=== PATIENT | female | born 2000 | race Two or more races ===

== ENCOUNTER 2018-07-26 12:23 | Inpatient (IN) | END 2018-07-27 15:02 | disposition home or self-care (01) | DRG 781 ==

== ENCOUNTER 2018-09-27 13:44 | Outpatient (CLI) | END 2018-09-27 16:27 | disposition home or self-care (01) ==

== ENCOUNTER 2018-09-30 15:41 | Outpatient (CLI) | END 2018-09-30 17:04 | disposition home or self-care (01) ==

== ENCOUNTER 2018-10-07 09:45 | Outpatient (CLI) | END 2018-10-07 13:56 | disposition home or self-care (01) ==

== ENCOUNTER 2018-10-10 10:57 | Inpatient (IN) | END 2018-10-15 13:15 | disposition home or self-care (01) | DRG 807 ==

== ENCOUNTER 2019-07-15 14:43 | Outpatient (CLI) | payer OTHER ==
[~2019-07-15] VITALS: Ht 154.9 cm; Wt 74.8 kg
[~2019-07-15 14:43] MED LIST: IBUP-1542 PO; PREN-93 PO
[2019-07-15 15:57] VITALS: BP 109/62; PULSE 93; RESP 17; Ht 154.9 cm; Wt 74.8 kg
--- NOTE | 2019-07-15 19:04 | TRIAGE ---
OB Triage Datetime Report Generated by CPN: 07/15/2019 19:04 Datetime: 07/15/2019 18:16 Labor Evaluation Frequency: NONE Monitor Mode: External Resting Tone [place]: Relaxed Heart Rate FHR Baseline Rate: 150 Monitor Mode: External US FHR Baseline Changes: No Baseline Change Variability: Moderate 6-25 bpm Accelerations: 15X15 Decelerations: None Category: Category I Datetime: 07/15/2019 17:45 Labor Evaluation Frequency: NONE Monitor Mode: External Resting Tone [place]: Relaxed Heart Rate FHR Baseline Rate: 148 Monitor Mode: External US FHR Baseline Changes: No Baseline Change Variability: Moderate 6-25 bpm Accelerations: 15X15 Decelerations: None Category: Category I Datetime: 07/15/2019 16:46 Labor Evaluation Frequency: none Monitor Mode: External Resting Tone [place]: Relaxed Heart Rate FHR Baseline Rate: 150 Monitor Mode: External US FHR Baseline Changes: No Baseline Change Variability: Moderate 6-25 bpm Accelerations: 15X15 Decelerations: None Category: Category I Datetime: 07/15/2019 16:11 Labor Evaluation Frequency: none Monitor Mode: External Resting Tone [place]: Relaxed Heart Rate FHR Baseline Rate: 145 Monitor Mode: External US FHR Baseline Changes: No Baseline Change Variability: Moderate 6-25 bpm Accelerations: 15X15 Decelerations: None Category: Category I Datetime: 07/15/2019 15:56 Stage of : OB Triage Datetime: 07/15/2019 15:53 Stage of : OB Triage Assessment Type: Transfer/Discharge Maternal Assessment Level of Consciousness: Keenly Alert, Responsive DTR's/Clonus: DTRs 2+; No Clonus Headache: Denies Blurred Vision: No Respiratory Effort: Unlabored; Regular Rhythm; Equal Expansion Breath Sounds, Left: Clear and Equal Breath Sounds, Right: Clear and Equal Nausea/Vomiting: Denies RUQ Epigastric Pain: Denies Lower Extremities Edema: None Degree: None Upper Extremities Edema: None Degree: None Facial Edema: None Temperature Route: Axillary Fall Risk Assessment History of Falling: (0) No Secondary Diagnosis: (0) No Ambulatory Aid: (0) Bedrest/Nurse Assist IV Therapy: (0) No Gait: (0) Normal/Bedrest/Immobile Mental Status: (0) Oriented to Own Ability Fall Score: 0 Fall Risk Score Definition: No Risk: No action required Monitor Mode: External Heart Rate FHR Baseline Rate: 135 Variability: Moderate 6-25 bpm Accelerations: 15X15 Decelerations: None Category: Category I Pain Assessment Pain Scale: 1 Pain Presence: None/Denies Pain Type: N/A Datetime: 07/15/2019 15:51 Time of Arrival: 07/15/2019 14:36 EGA: 32.3 Arrived By: Ambulatory Arrived From: Home Chief Complaint: STATED SHE FELL AT 1330 THIS AFTERNOON, LOST HER BALANCE, Movement: Present Contractions: Denies/Absent Rupture of Membranes: Denies Vaginal Bleeding: None Vaginal Discharge: Denies Recent Sexual Intercouse: Denies Abdominal Trauma: Fall
--- NOTE | 2019-07-15 19:06 | PN ---
Triage Information Date/Time Reason for visit: Status post fall, feeling dizzy Weeks of Gestation 19-year-old 2 para 1 at 32 weeks and 3 days of gestation with estimated date of delivery September 06, 2019 Patient reports an episode of falling but did not hit her abdomen Patient reports positive movement, denies vaginal bleeding and leaking fluid, denies uterine contractions /Para 2 para 1 Diabetes: none Hypertention: none Objective Vital Signs Date Temp Pulse Resp B/P (MAP) Pulse Ox O2 O2 Flow FiO2 Time Delivery Rate 07/15/19 98.8 93 17 109/62 Room Air 15:57 (78) Heart Rate: 140's Heart Rate Comments heart rate tracing category 1 Contractions: None Results/Medications Result Diagram: 07/15/19 1622 07/15/19 1808 Results 24 hrs Blood type A positive Kleihauer-Betke negative Laboratory Tests Test 07/15/19 16:22 07/15/19 18:08 White Blood Count 13.2 H Red Blood Count 3.85 L Hemoglobin 9.2 L Hematocrit 30.2 L Mean Corpuscular Volume 78.4 L Mean Corpuscular Hemoglobin 23.9 L Mean Corpuscular Hemoglobin Concent 30.5 L Red Cell Distribution Width 15.9 H Platelet Count 442 H Mean Platelet Volume 10.9 H Immature Granulocytes % 4.400 H Neutrophils % 71.1 Lymphocytes % 17.7 Monocytes % 5.3 Eosinophils % 0.8 Basophils % 0.7 Nucleated Red Blood Cells % 0.0 Immature Granulocytes # 0.580 H Neutrophils # 9.4 H Lymphocytes # 2.3 Monocytes # 0.7 Eosinophils # 0.1 Basophils # 0.1 Nucleated Red Blood Cells # 0.0 Kleihauer-Betke Stain 0.0000 Sodium Level 136 Potassium Level 3.8 Chloride Level 104 Carbon Dioxide Level 23 Anion Gap 9 Blood Urea Nitrogen 6 L Creatinine 0.40 L Est Glomerular Filtrat Rate mL/min > 60 Glucose Level 69 L Calcium Level 9.0 Total Bilirubin 0.4 Direct Bilirubin 0.00 Indirect Bilirubin 0.4 Aspartate Amino Transf (AST/SGOT) 33 Alanine Aminotransferase (ALT/SGPT) 19 Alkaline Phosphatase 87 Total Protein 6.8 Albumin 3.5 Globulin 3.30 H Albumin/Globulin Ratio 1.06 Imaging Results PROCEDURE: US OB biophysical profile. CLINICAL INDICATION: Trauma TECHNIQUE: Multiple sonographic images of the pelvis were obtained. The images were reviewed on a PACS workstation. COMPARISON: None FINDINGS: Noted is a single intrauterine gestation in cephalic lie with positive heart beat measuring 124 beats per minute. The amniotic fluid index measures 17.5 cm. The placenta is posterior fundal grade 1 without evidence of abruption or previa. Biophysical profile: movement 2/2 tone 2/2. breathing 2/2 NICO 2/2 Total 07/06 IMPRESSION: Normal biophysical profile . . .Mauricio Rocha MD, MD Date Time Electronically viewed and signed by .Mauricio Rocha MD, MD on 07/15/2019 17:28 .A/ CC: BEST NULL MD [phone] Disposition: Discharge Assessment/Plan Patient counseled to increase p.o. hydration kick count instructions were given Labor precautions were given Patient instructed to follow-up with [facility] in 1 to 2 days BEST NULL MD Jul 15, 2019 19:06
== END 2019-07-15 19:13 | disposition home or self-care (01) ==
LOC: L-D 14:43 → OBT 14:43
PROVIDERS: ATTEND Specialist
DX: O26.893 Other specified pregnancy related conditions, third trimester (principal); Z3A.32 32 weeks gestation of pregnancy
CPT/HCPCS: 76818; 80053; 85025; 85460; 86900; 86901; G0463